=== PATIENT | male | born 2000 | race African-American/Black ===

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

== ENCOUNTER 2021-12-15 17:30 | Emergency (ER) | payer SELFPAY ==
[~2021-12-15] VITALS: Ht 182.9 cm; Wt 86.2 kg
[~2021-12-15 17:30] MED LIST: HYOS0.1283 SL; ONDA4TAB8 PO; PANT40TA2 PO
[2021-12-15] MEDS ORDERED: NS IV 1000 ML 1,000 ML IV SCH (17:45)
[2021-12-15] MEDS ORDERED: FAMOTIDINE 20MG/2ML IV (PEPCID) IVP ONE (18:00)
[2021-12-15] MEDS ORDERED: ONDANSETRON 4 MG/2 ML (SDV) Z0FRAN IVP ONE (18:00)
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
[2021-12-15 18:09] LABS: BASOPHILS % (AUTO) 0 % (0-10); EOSINOPHILS % (AUTO) 0 % (0-10); HEMATOCRIT 46 % (40-54); HEMOGLOBIN 16.6 g/dL (13.3-17.7); LYMPHOCYTES # (AUTO) 1.8 10^3/uL (1.0-4.0); LYMPHOCYTES % (AUTO) 11 % (12-44); MEAN CORPUSCULAR HEMOGLOBIN 35 pg (25-34); MEAN CORPUSCULAR HGB CONC 36 g/dL (32-36); MEAN CORPUSCULAR VOLUME 96 fL (80-99); MEAN PLATELET VOLUME 9.9 fL (9.0-12.2); MONOCYTES # (AUTO) 1.1 10^3/uL (0.0-1.0); MONOCYTES % (AUTO) 6 % (0-12); NEUTROPHILS # (AUTO) 13.6 10^3/uL (1.8-7.8); NEUTROPHILS % (AUTO) 82 % (42-75); PLATELET COUNT 254 10^3/uL (130-400); WHITE BLOOD COUNT 16.6 10^3/uL (4.3-11.0)
[2021-12-15 18:30] LABS: BUN/CREATININE RATIO 13; CALCIUM 9.6 MG/DL (8.5-10.1); CARBON DIOXIDE 18 MMOL/L (21-32); CHLORIDE 98 MMOL/L (98-107); CREATININE SERUM 1.12 MG/DL (0.60-1.30); GFR ESTIMATED 95; GLUCOSE 81 MG/DL (70-105); MAGNESIUM 1.2 MG/DL (1.6-2.4); POTASSIUM 3.7 MMOL/L (3.6-5.0); SODIUM 139 MMOL/L (135-145)
[2021-12-15 18:31] LABS: ALANINE AMINOTRANSFERASE 40 U/L (0-55); ALBUMIN 4.9 GM/DL (3.2-4.5); ALKALINE PHOSPHATASE 63 U/L (40-136); BILIRUBIN,TOTAL 0.8 MG/DL (0.1-1.0); TOTAL PROTEIN 7.6 GM/DL (6.4-8.2)
[2021-12-15 18:37] LABS: BAND NEUTROPHILS 0 %; BASOPHILS % (MANUAL) 0 %; EOSINOPHILS % (MANUAL) 0 %; LYMPHOCYTES % (MANUAL) 10 %; MONOCYTES % (MANUAL) 7 %; NEUTROPHILS % (MANUAL) 83 %
[2021-12-15] MEDS ORDERED: FAMO-119 PO (19:10)
[2021-12-15] MEDS ORDERED: ONDA4TAB11 PO (19:10)
[2021-12-15 19:17] VITALS: BP 149/77
== END 2021-12-15 19:28 | disposition home or self-care (01) ==
LOC: EDUNIT# 17:30 → ER FS 17:31
DX: K29.20 Alcoholic gastritis without bleeding (principal); F17.210 Nicotine dependence, cigarettes, uncomplicated
CPT/HCPCS: 36415; 80053; 83735; 85007; 85027; 99282

== ENCOUNTER 2022-10-30 20:10 | Emergency (ER) | payer SELFPAY ==
[~2022-10-30] VITALS: Ht 183 cm; Wt 83.9 kg
[~2022-10-30 20:10] MED LIST changes: +FAMO-119 PO; +ONDA4TAB11 PO
--- NOTE | 2022-10-30 20:45 | Diagnostic Imaging Report ---
INDICATION: Chest wall pain. FINDINGS: The heart size, mediastinal configuration, and pulmonary vascularity are within normal limits. There is no pleural effusion, pneumothorax, or pneumonia. The osseous structures are unremarkable. IMPRESSION: No acute cardiopulmonary abnormality. Dictated by: Dictated on workstation # [id number]
[2022-10-30] MEDS ORDERED: ACETAMINOPHEN 500 MG TAB (TYLENOL) PO ONE (21:00)
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
[2022-10-30 21:22] VITALS: BP 13/67
[2022-10-30] MEDS ORDERED: IBUPROFEN 600 MG (MOTRIN) TAB PO ONE (21:30)
== END 2022-10-30 21:22 | disposition home or self-care (01) ==
LOC: EDUNIT# 20:10 → ER FS 20:11
DX: S20.212A Contusion of left front wall of thorax, initial encounter (principal); Z28.310 Unvaccinated for COVID-19; Y08.89XA Assault by other specified means, initial encounter
CPT/HCPCS: 71045; 99283